=== PATIENT | male | born 1950 | race Caucasian/White ===

== ENCOUNTER → 2020-11-07 08:09 | Outpatient (CLI) | payer MEDICARE, SELFPAY | PROVIDERS: PCP Family Medicine; Visit Provider Nurse Practitioner | DX: Z20.822 Contact with and (suspected) exposure to COVID-19 (principal) | CPT/HCPCS: C9803; U0003; U0005 ==

== ENCOUNTER → 2020-12-26 12:50 | Outpatient (CLI) | payer MEDICARE, SELFPAY ==
--- NOTE | 2020-12-26 12:52 | US_ITS ---
APPROVED REPORT Exam Type: Lower Extremity Segmental Pressures Deburrer: Lucia Randolph RVT Indications Non-healing Ulcer: Right DECREASED PULSES BILATERAL, WOUND RT 5TH DIGIT Pressures/Indices Right Indices Left Indices Brachial 181.00 mmHg Brachial 179.00 mmHg Low Thigh 174.00 mmHg 0.96 Low Thigh 143.00 mmHg 0.79 Calf 189.00 mmHg 1.04 Calf 149.00 mmHg 0.82 Ankle(PT) 202.00 mmHg 1.12 Ankle(PT) 149.00 mmHg 0.82 Ankle(DP) 191.00 mmHg 1.06 Ankle(DP) 150.00 mmHg 0.83 Digit 126.00 mmHg 0.70 Digit 126.00 mmHg 0.70 Findings RT MARCELA:1.12 LT MARCELA:0.83 RT TBI:0.70 LT TBI:0.70 DAMPANED PULSES ON THE LEFT DAMPANED WAVEFORMS ON THE LEFT MILD ARTERIAL DISEASE LEFT LOWER EXTREMITY. Conclusion RT MARCELA:1.12 LT MARCELA:0.83 RT TBI:0.70 LT TBI:0.70 DAMPANED PULSES ON THE LEFT DAMPANED WAVEFORMS ON THE LEFT MILD ARTERIAL DISEASE LEFT LOWER EXTREMITY. Electronically signed by : Abrahan Kidd MD 12/26/2020 15:29:15
== END ==
PROVIDERS: PCP Family Medicine; Visit Provider Podiatrist
DX: R09.89 Other specified symptoms and signs involving the circulatory and respiratory systems (principal)
CPT/HCPCS: 93923

== ENCOUNTER → 2020-12-29 07:56 | Outpatient (CLI) | payer MEDICARE, SELFPAY | PROVIDERS: PCP Family Medicine; Visit Provider Nurse Practitioner | DX: Z20.822 Contact with and (suspected) exposure to COVID-19 (principal); U07.1 COVID-19 | CPT/HCPCS: C9803; U0003; U0005 ==

== ENCOUNTER → 2021-04-13 13:27 | Outpatient (CLI) | payer MEDICARE, SELFPAY | PROVIDERS: PCP Family Medicine; Visit Provider Nurse Practitioner | DX: U07.1 COVID-19 (principal) | CPT/HCPCS: C9803; U0003; U0005 ==

== ENCOUNTER → 2021-04-23 16:50 | Outpatient (CLI) | payer MEDICARE, SELFPAY ==
--- NOTE | 2021-04-23 17:00 | XR_ITS ---
PROCEDURE INFORMATION: Exam: XR Chest Exam date and time: 04/23/2021 5:00 PM Age: 70 years old Clinical indication: Condition or disease; Other: Covid positive TECHNIQUE: Imaging protocol: XR of the chest. Views: 1 view. COMPARISON: No relevant prior studies available. FINDINGS: Lungs: Right middle lobe infiltrate. Hyperexpanded lungs. Pleural spaces: Unremarkable. No pleural effusion. No pneumothorax. Heart/Mediastinum: Unremarkable. No cardiomegaly. Bones/joints: Unremarkable. IMPRESSION: Right middle lobe infiltrate.
[2021-04-23 17:26] LABS: Basophils # 0.1 K/mm3 (0-0.2); Basophils % 0.9 % (0.1-2.0); Eosinophils # 0.1 K/mm3 (0.0-0.4); Eosinophils % 0.6 % (0.1-12.0); Hematocrit 46.2 % (42.0-52.0); Hemoglobin 15.4 g/dL (14.1-18.0); Lymphocytes # 1.8 K/mm3 (0.7-4.5); Lymphocytes % 11.1 % (10-50); Mean Corpuscular HGB Conc 33.2 g/dL (31.8-35.4); Mean Corpuscular Hemoglobin 30.2 pg (27.0-31.2); Mean Corpuscular Volume 91.1 fl (80-94); Mean Platelet Volume 8.5 fl (7.4-10.4); Monocytes # 1.1 K/mm3 (0.1-1.0); Monocytes % 6.7 % (1.7-9.3); Neutrophils # 12.7 K/mm3 (1.8-7.8); Neutrophils % 80.6 % (37.0-80.0); Platelet Count 357 K/mm3 (142-424); Red Blood Count 5.08 M/mm3 (4.60-6.20); Red Cell Distribution Width 13.2 % (11.5-17.5); White Blood Count 15.8 K/mm3 (4.8-10.8)
[2021-04-23 17:36] LABS: MANUAL DIFFERENTIAL MANUAL DIFFERENTIAL (MANUAL DIFF)
[2021-04-23 18:27] LABS: Hypochromasia 1+; Lymphocytes % 11 % (10-50); Monocytes % 6 % (2-9); Neutrophils % 83 % (42-76); Platelet Estimate Normal; Total Cells Counted 100
== END ==
PROVIDERS: PCP Family Medicine; Visit Provider Physician Assistant
DX: U07.1 COVID-19 (principal)
CPT/HCPCS: 71045; 85007; 85025

== ENCOUNTER 2023-05-17 07:23 | Day surgery (SDC) | payer MEDICARE, SELFPAY ==
[2023-05-17] MEDS: CYCLOPENTOLATE 2% OPHTH SOLN 2ML BOTTLE OP ×3 (08:00→08:10)
[2023-05-17] MEDS: PHENYLEPHRINE 2.5% OPHTH SOLN 2ML 0.0500000000000000028 ML OP ×3 (08:00→08:10)
[2023-05-17] MEDS: TETRACAINE 0.5% OPTH SOL 15ML OP ×3 (08:00→08:10)
[2023-05-17 08:04] VITALS: BP 149/66; PULSE 64; RESP 18; TEMP 36.7; O2SAT 93; BMI 24.7
[2023-05-17] MEDS: SODIUM CHLORIDE 0.9% 10ML FLUSH SYRINGE 10 ML IV ×2 (08:11→08:49)
[2023-05-17 08:41] VITALS: BP 160/74; PULSE 63; RESP 20; O2SAT 96
[2023-05-17] MEDS: MIDAZOLAM 2MG/2ML VIAL 1 MG IV (08:41)
[2023-05-17 08:46] VITALS: BP 162/74; PULSE 58; RESP 20; O2SAT 97
[2023-05-17] MEDS: TIMOLOL 0.5% OPTH SOLN 5ML OP (08:49)
[2023-05-17] MEDS: LIDOCAINE 1% PF 2ML AMPULE 2 ML IJ (08:50)
[2023-05-17] MEDS: TOBRAMYCIN/DEX OPTH SUSP 2.5ML OP (08:50)
[2023-05-17 08:51] VITALS: BP 151/77; PULSE 62; RESP 20; O2SAT 98
[2023-05-17 08:52] VITALS: BP 173/84; PULSE 65; RESP 20; O2SAT 97
[2023-05-17 08:59] VITALS: BP 152/68; PULSE 64; RESP 17; TEMP 36.6; O2SAT 99
== END 2023-05-17 09:12 | disposition home or self-care (01) ==
PROVIDERS: PCP Family Medicine; Visit Provider Ophthalmology
PROC: (CPT 66984; principal; 2023-05-17 09:00)
DX: H25.811 Combined forms of age-related cataract, right eye (principal); H53.8 Other visual disturbances
CPT/HCPCS: 66984; V2632

== ENCOUNTER 2023-05-31 07:47 | Day surgery (SDC) | payer MEDICARE, SELFPAY ==
[2023-05-27 10:04] VITALS: BMI 25.4
[2023-05-31] VITALS (7 sets, daily range): BP systolic 123–197; BP diastolic 71–97; PULSE 56–70; RESP 18; TEMP 36.2–36.7; O2SAT 93–98
[2023-05-31] MEDS: CYCLOPENTOLATE 2% OPHTH SOLN 2ML BOTTLE OP ×3 (08:20→08:30)
[2023-05-31] MEDS: PHENYLEPHRINE 2.5% OPHTH SOLN 2ML 0.0500000000000000028 ML OP ×3 (08:20→08:30)
[2023-05-31] MEDS: TETRACAINE 0.5% OPTH SOL 15ML OP ×3 (08:20→08:30)
[2023-05-31] MEDS: SODIUM CHLORIDE 0.9% 10ML FLUSH SYRINGE 10 ML IV ×2 (08:34→10:00)
[2023-05-31] MEDS: MIDAZOLAM 2MG/2ML VIAL 1 MG IV (09:44)
[2023-05-31] MEDS: LIDOCAINE 1% PF 2ML AMPULE 2 ML IJ (09:59)
[2023-05-31] MEDS: TOBRAMYCIN/DEX OPTH SUSP 2.5ML OP (09:59)
[2023-05-31] MEDS: TIMOLOL 0.5% OPTH SOLN 5ML OP (09:59)
== END 2023-05-31 10:25 | disposition home or self-care (01) ==
LOC: OR 07:48
PROVIDERS: PCP Family Medicine; Visit Provider Ophthalmology
DX: H25.811 Combined forms of age-related cataract, right eye (principal); H53.8 Other visual disturbances; H02.831 Dermatochalasis of right upper eyelid
CPT/HCPCS: 66984; V2632

== ENCOUNTER 2024-08-21 09:48 | Outpatient (CLI) | payer MEDICARE, SELFPAY ==
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
--- OUTSIDE RECORDS SUMMARY | 2024-08-21 09:53 | XMS_ITS | Patient Health Record ---
Author Organization [facility] Address [address] [place] [id number] Care Team Providers Care Phone Representative Name Role Phone Randall Leung Primary Care Provider Allergies Allergen (clinical drug ingredient) Drug/Non Drug Allergy documented on EMR Reaction Allergy Type Onset Date Status escitalopram Lexapro diarrhea Drug Allergy Acti ve Penicillin Unknown Drug Allergy Active Results Component Value Reference Range Notes P-Comprehensive Metabolic Pa faith (CMP) Reviewed date:03/12/2024 05:23:00 PM Interpretation:Normal Performing Lab: Notes/Report: Test performed by [facility] [address] [place] [address] , [address], [place] [address] Elliot Hatfield MD, Fibrous Plasterer CLIA: [id number] Sodium 140 135-145 mmol/L Potassium 4.0 3.5-5.3 [...] Interpretation:Normal Performing Lab: Notes/Report: Test performed by [facility], [address] , [address], [place] [address] Elliot Hatfield MD, Fibrous Plasterer CLIA: [id number] PSA 1.38 <4.00 ng/mL Please note this is an ultrasensitive PSA assay with a lower limit of detection of 0.014 ng/mL. This test is performed by the Don ECLIA methodology. Values obtained with different assay methods or kits cannot be directly compared. Medications Medication SIG (Take, Route, Frequency, Duration) Notes Start Date End Date Status Stiolto Respimat 2.5-2.5 MCG/ACT 2 puffs Inhalation Once a day 05/11/2024 Active ProAir Digihaler 108 (90 Base) MCG/ACT inhale 2 puffs by mouth four times daily as needed inhaled every 6 hours prn; Duration: 90 days Active Effexor XR 75 MG 1 cap(s) orally once a day; Duration: 90 days Active KlonoPIN 0.5 MG 1 tab(s) orally 3 ti mes a day as needed 03/08/2024 Active tiZANidine HCl 4 MG 1 tablet as needed Orally Three times a day 09/16/2022 Not-Ricardo ing Breo Ellipta 100-25 MCG/ACT 1 puff Inhalation Once a day 11/09/2022 Not-Taking Immunizations Vaccine Route Administration Date Status Comme nts COVID 19 Moderna Unknown 05/27/2021 Administered COVID 19 Pfizer Unknown 04/13/2020 Administered COVID 19 Pfizer Unknown 05/07/2020 Administered COVID 19 Pfizer Unknown 11/16/2020 Administered DT, 7 YEARS OR OLDER Unknown 04/24/1996 Administered Fluzone High Dose (65yr and older) Unknown 10/24/2019 Administered Fluzone Quad (6months&older) Unknown 12/25/2016 Administered Fluzone Quad-Medicare (6months&older) Unknown 12/13/2017 Administered Fluzone Quad-Medicare (6months&older) Unknown 11/13/2020 Administered Fluzone Quad-Medicare (6months&older) Unknown 11/02/2021 Administered Hepatitis A (adult) Unknown 12/13/2017 Administered PNEUMOVAX 23 VACCINE IM Intramuscular 04/12/2019 Administe red Prevnar (PCV13) IM Intramuscular 04/13/2018 Administered xFlu shot- 6months-36 months of ckp-XAEA-OMZS-trivalent Unknown 04/08/2016 Administered xFlu shot- 6months-36 months of jdc-FAOG-GLTG-trivalent Unknown 12/25/2016 Administered xFlu shot-36 months and older IM Intramuscular 12/15/2006 Administered xFlu shot-36 months and older IM Intramuscular 11/05/2008 Administered xFluzone High Dose-private (65yr&older) Unknown 10/31/2023 Administered Social History Tobacco Use: Social History Observation Description Date Details (start date - stop date) Former Smoker NA - NA CURRENT TOBACCO USE: Question Answer Notes Are you a: former smoker Quit 01/2023 Problems Problem Type SNOMED Code ICD Code Onset Dates Problem Status W/U Status Risk Notes Problem Gastroesophageal reflux disease (491457916) GERD (gastroesophageal reflux disease) (K21.9) Active confirmed Problem COPD - Chronic obstructive pulmonary disease (50884862) COPD (chronic obstructive pulmonary disease) (J44.9) Active confirmed Problem Anxiety disorder (094176089) Anxiety disorder (F41.9) Active confirmed Problem Social anxiety disorder (64014879) Social anxiety disorder (F40.10) Active confirmed Problem History of malignant neoplasm of prostate (505656193) History of prostate cancer (Z85.46) Active confirmed Problem Depression (328168943) Depression (F32.9) Active confirmed Problem Sacroiliitis (45166091) Sacroiliitis (M46.1) Active confirmed Problem Current smoker (82185548) Current smoker (F17.200) Active confirmed Problem Localized, primary osteoarthritis of the pelvic region and thigh (245077474) Primary osteoarthritis of left hip (M16.12) Active confirmed Problem Personal history of smoking (Z87.891) Active confirmed Problem Sciatica (49486959) Left sciatic nerve pain (M54.32) Active confirmed Vital Signs Heart Rate 73 /min 03/08/2024 Blood pressure diastolic 74 mm Hg 03/08/2024 Height 71 in 03/08/2024 Blood pressure systolic 130 mm Hg 03/08/2024 Weight 181.8 lbs 03/08/2024 BMI 25.35 kg/m2 03/08/2024 Encounters Encounter Location Date Provider Diagnosis [facility] [address] [facility] [address] [place] [id number] 09/15/2023 R Sergio Leung Anxiety disorder F41 .9 ; COPD (chronic obstructive pulmonary disease) J44.9 ; Depression F32.9 ; Left sciatic nerve pain M54.32 and History of prostate cancer Z85.46 [facility] [address] [facility] [address] [place], [place] [id number] 03/08/2024 R Sergio Leung Adult general medica l examination Z00.00 ; Anxiety disorder F41.9 ; COPD (chronic obstructive pulmonary disease) J44.9 ; Depression F32.9 ; History of prostate cancer Z85.46 ; Personal history of smoking Z87.891 and BMI 25.0-25.9,adult Z68.25 [facility] [address] [facility] 36 [facility] [address] [place], [place] [id number] 03/12/2024 R Sergio Leung [facility] [address] [facility] 36 [facility] [address] [place], [place] [id number] 03/13/2024 R Sergio Leung Elevated PSA R97.20 [facility] [address] [facility] 36 [facility] [address] [place], [place] [id number] 05/11/2024 R Sergio Leung COPD (chronic obstructive pulmonary disease) J44.9 [facility] [address] [facility] 36 [facility] [address] [place], [place] [id number] 05/11/2024 R Sergio Leung [facility] [address] [facility] 36 [facility] [address] [place], [place] [id number] 07/02/2024 R Sergio Leung Assessments Encounter Date Diagnosis (ICD Code) Assessment Notes Treatment Notes Treatment Clinical Notes Section Notes 09/15/2023 COPD (chronic obstructive pulmonary disease) (ICD-10 - J44.9) 09/15/2023 Anxiety disorder (ICD-10 - F41.9) 03/08/2024 Anxiety disorder (ICD-10 - F41.9) 03/08/2024 Adult general medical examination (ICD-10 - Z00.00) Patient instructed to return to office Annually for Annual Wellness Visits to include annual screenings of Pain assessment, Functional Ability assessment, Cognitive Ability assessment, Fall Risk assessment, Depression screening and Bladder control screening. 03/13/2024 Elevated PSA (ICD-10 - R97.20) 05/11/2024 COPD (chronic obstructive pulmonary disease) (ICD-10 - J44.9) 03/08/2024 COPD (chronic obstructive pulmonary disease) (ICD-10 - J44.9) 09/15/2023 Depression (ICD-10 - F32.9) 09/15/2023 Left sciatic nerve pain (ICD-10 - M54.32) 03/08/2024 Depression (ICD-10 - F32.9) 03/08/2024 History of prostate cancer (ICD-10 - Z85.46) 09/15/2023 History of prostate cancer (ICD-10 - Z85.46) 03/08/2024 Personal history of smoking (ICD-10 - Z87.891) 03/08/2024 BMI 25.0-25.9,adult (ICD-10 - Z68.25) Plan Of Treatment Pending Test Test Name Order Date Prostate Specific Antigen (PSA) 09/17/19 CMP 09/16/2022 CBC 09/16/2022 H-Lipid Panel 01/08/2021 H-CMP 01/08/2021 H-PSA 01/08/2021 Next Appt Details Provider Name:Randall Lowe, 09/06/2024 10:30:00 AM, [address] [facility], [address], [place], [place], [id number], Insurance Providers Payer Name Payer Address Payer Phone Subscriber Number Group Number Insured Name Patient Relationship to Insured Coverage Start Date Coverage End Date [employer] (MEDICAR E) [address] [address] [place] [address] [id number] June, Self - patient is the insured Medical (General) History Medical History History ICD Code Esophageal reflux anxiety OA Prostate cancer - 05/2009 COPD Tobacco abuse Presbycusis Cologuard - positive 04/2018 -> declines further w/u Declines all health maintenance screenin g 09/2019; 08/2023; 02/2024 Surgical History Surgery Date(Month/Year) radical prostatectomy 08-20-09 Repair of urethral stricture 09/2009 Bilateral Cataract Surgery 2023 Hospitalization History Reason Date(Month/Year) broke left leg, 2 days in [facility]-hurt right foot 09/06
[2024-08-21] MEDS: ALBUTEROL 0.083% 2.5 MG/3 ML NEB IH (10:41)
--- NOTE | 2024-08-21 10:42 | PC.NURSE ---
Pre and Post Spirometry completed without incident. Albuterol 0.083% given via HHN, per written protocol, Pt tolerated tx well.
--- NOTE | 2024-08-21 11:00 | CT_ITS ---
FINAL REPORT TECHNIQUE: Thin section axial images were obtained from the lung apices to the upper abdomen by computed tomography. Reformatted images were obtained and reviewed. This study was performed with techniques to keep radiation doses al low as reasonably achievable (ALARA). Individualized dose reduction techniques using automated exposure control or adjustment of mA and/or kV according to the patient's size were employed. CLINICAL HISTORY: lung cancer screening, quit smoking 6 months ago, smoked 3 packs per day x 56 yrs, exposure to asbestos, diesel fumes, & coal smoke. prostate cancer. lung cancer history in cousins. exposed to second hand smoke. COMPARISON: None FINDINGS: CHEST CT LOW DOSE 74-year-old male, quit smoking 6 months ago, [id number] history. CTDI vol (mGy): 2.90 DLP (mGy-cm): 115.42 There is no axillary adenopathy. There is no mediastinal or hilar mass or adenopathy. The heart is normal in size. There is no pericardial or pleural effusion. There is mild emphysema and mild pulmonary scarring. Lung window images demonstrate no suspicious infiltrate or nodule. Limited images of the upper abdomen are unremarkable. IMPRESSION: Lung-RADS category 1. Recommend 12 month follow up low dose chest CT. Reviewed, Interpreted and Dictated by Tip Olea MD Transcribed by Lourdes Gibson Authenticated and [facility]
--- NOTE | 2024-08-21 11:12 | XR_ITS ---
FINAL REPORT TECHNIQUE: Chest PA & Lateral CLINICAL HISTORY: COPD, SOA COMPARISON: None FINDINGS: 2 views of the chest were performed. The heart size is normal. The mediastinum is within normal limits. There are large lung volumes and flattening of the hemidiaphragms consistent with changes of chronic obstructive pulmonary disease. There are no pleural effusions. There is no pneumothorax. The bony thorax appears intact. IMPRESSION: Changes of chronic obstructive pulmonary disease, with no acute cardiopulmonary process. Reviewed, Interpreted and Dictated by Tip Olea MD Transcribed by Lourdes Gibson Authenticated and [facility]
== END 2024-08-21 23:59 | disposition home or self-care (01) ==
LOC: RT 09:50
PROVIDERS: PCP Nurse Practitioner Family; Visit Provider Nurse Practitioner Family
DX: J44.9 Chronic obstructive pulmonary disease, unspecified (principal); Z87.891 Personal history of nicotine dependence; Z12.2 Encounter for screening for malignant neoplasm of respiratory organs
CPT/HCPCS: 71046; 71271; 94010

== ENCOUNTER 2024-12-05 16:21 | Outpatient (CLI) | payer MEDICARE, SELFPAY ==
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
--- OUTSIDE RECORDS SUMMARY | 2024-09-06 06:30 | XMS_ITS ---
Author Organization [facility] Address [address] [facility] [address] [place] [id number] Care Team Providers Care Label Drier Name Role Phone Randall Leung Primary Care Provider Allergies Allergen (clinical drug ingredient) Drug/Non Drug Allergy documented on EMR Reaction Allergy Type Onset Date Status escitalopram Lexapro diarrhea Drug Allergy Acti ve Penicillin Unknown Drug Allergy Active REASON FOR VISIT 6 month check, Needs labs, colon cancer screening, & low dose chest CT Social History Tobacco Use: Social History Observation Description Date Details (start date - stop date) Former Smoker NA - NA CURRENT TOBACCO USE: Question Answer Notes Are you a: former smoker Quit 01/2023 Encounters Encounter Location Date Provider Diagnosis [place] [address] [facility] [address] [place] [id number] 09/06/2024 Randall Leung Plan Of Treatment No Information Progress Notes * Wagner AMAYA TDOB:1950 ([age] yo M)Acc No.[id number]:09/06/2024 Progress Notes Patient: Wagner CHAVES Provider: Randall Leung M.D. :1950 A ge:74 Y S ex:Male Date:09/06/2024 Address:[address] [id number] Subjective: * Chief Complaints: * 1 . 6 month check. 2. Needs labs, colon cancer screening, & low dose chest CT. * HPI: H PI: 74 year old male presents with c/o Patient is here today for?Pt is here today for a 6 month check up. Pt sts he is doing well and has no concerns at this time. Pt is fasting. * ROS: D ERMATOLOGY: no R jose raul. n [...] b roke left leg, 2 days in [facility], [facility]-hurt right foot 09/06. * Family History: F ather: , TB, ASCVD, ETOH abuse. M other: , asthma, TB. 1 brother(s) , 2 sister(s) . 2 son(s) , 1 daughter(s) . . * Social History: C URRENT TOBACCO USE: No A re you a: f ormer smoker Quit 01/2023. C affeine: yes, frequency:. Past smoking status: yes, Quit 01/2023. Alcohol: no. * Allergies: P enicillin, Lexapro: diarrhea. Objective: * Vitals: Assessment: Plan: * Treatment: * Images: Billing Information: * Visit Code: * Procedure Codes: * Electronic signature of Randall Leung MD on 12/06/2024 at 11:14 AM EDT Sign off status: Pending * Provider: Randall Leung M.D. Date: 0 09/06/2024 Generated for Juan Francisco real/Anam/Rodriguez on: 1 11:14 AM EDT History and Physical Notes * HPI (History of Present Illness) Category Sub-Category Detail Notes Category Not es HPI Patient is here today for Pt is here today for a 6 month check up. Pt sts he is doing well and has no concerns at this time. Pt is fasting
[2024-12-05 16:58] LABS: Coronavirus 19, PCR Not Detected (NotDetected); Influenza A, PCR Not Detected (NotDetected); Influenza B, PCR Not Detected (NotDetected)
--- OUTSIDE RECORDS SUMMARY | 2024-12-06 11:14 | XMS_ITS | Patient Health Record ---
Author Organization [facility] Address [address] [place] [id number] Care Team Providers Care Treasury Agent Name Role Phone Randall Leung Primary Care Provider [phone] Allergies Allergen (clinical drug ingredient) Drug/Non Drug Allergy documented on EMR Reaction Allergy Type Onset Date Status escitalopram Lexapro diarrhea Drug Allergy Acti ve Penicillin Unknown Drug Allergy Active Results Component Value Reference Range Notes P-Comprehensive Metabolic Pa faith (CMP) Reviewed date:03/12/2024 05:23:00 PM Interpretation:Normal Performing Lab: Notes/Report: Test performed by [facility] [address] [place] [address] , [address], [place] [address] Elliot Hatfield MD, Welfare Investigator CLIA: [id number] Sodium 140 135-145 mmol/L Potassium 4.0 3.5-5.3 [...] Interpretation:Normal Performing Lab: Notes/Report: Test performed by [facility], [address] , [address], [place] [address] Elliot Hatfield MD, Welfare Investigator CLIA: [id number] PSA 1.38 <4.00 ng/mL Please note this [...] puffs Inhalation Once a day 05/11/2024 Active Effexor XR 75 MG 1 cap(s) orally once a day; Duration: 30 days Active ProAir Digihaler 108 (90 Base) MCG/ACT [...] 04/13/2018 Administered xFlu shot- 6months-36 months of coh-QGBU-YFXZ-trivalent Unknown 04/08/2016 Administered xFlu shot- 6months-36 months of ihl-IBAA-OEOI-trivalent Unknown 12/25/2016 Administered xFlu shot-36 months and [...] Status Risk Notes Problem Gastroesophageal reflux disease (922232543) GERD (gastroesophageal reflux disease) (K21.9) Active confirmed Problem COPD - Chronic obstructive pulmonary disease (64190674) COPD (chronic obstructive pulmonary disease) (J44.9) Active confirmed Problem Anxiety disorder (254441814) Anxiety disorder (F41.9) Active confirmed Problem Social anxiety disorder (45871912) Social anxiety disorder (F40.10) Active confirmed Problem History of malignant neoplasm of prostate (798290371) History of prostate cancer (Z85.46) Active confirmed Problem Depression (032396057) Depression (F32.9) Active confirmed Problem Sacroiliitis (29862897) Sacroiliitis (M46.1) Active confirmed Problem Current smoker (48592608) Current smoker (F17.200) Active confirmed Problem Localized, primary osteoarthritis of the pelvic region and thigh (405052407) Primary osteoarthritis of left hip (M16.12) Active confirmed Problem Ex-smoker (finding) (3669335) Personal history of smoking (Z87.891) Active confirmed Problem Sciatica (46253289) Left sciatic nerve pain (M54.32) Active confirmed Vital Signs Heart Rate 73 /min 03/08/2024 Blood pressure diastolic 74 mm Hg 03/08/2024 Height 71 in 03/08/2024 Blood pressure systolic 130 mm Hg 03/08/2024 Weight 181.8 lbs 03/08/2024 BMI 25.35 kg/m2 03/08/2024 Encounters Encounter Location Date Provider Diagnosis [facility] [address] [place], [place] [id number] 03/08/2024 R Sergio Leung Adult general medica l examination Z00.00 ; Anxiety disorder F41.9 ; COPD (chronic obstructive pulmonary disease) J44.9 ; Depression F32.9 ; History of prostate cancer Z85.46 ; Personal history of smoking Z87.891 and BMI 25.0-25.9,adult Z68.25 [facility] [address] [place], [place] [id number] 03/12/2024 R Sergio Madhu [facility] [address] [place], [place] [id number] 03/13/2024 R Sergio Spencert Elevated PSA R97.20 [facility] [address] [place], [place] [id number] 05/11/2024 R Sergio Spencert COPD (chronic obstructive pulmonary disease) J44.9 [facility] [address] [place], [place] [id number] 05/11/2024 R Sergio Madhu [facility] [address] [place], [place] [id number] 07/02/2024 R Sergio Madhu [facility] [address] [place], [place] [id number] 09/04/2024 R Sergio Spencert Anxiety disorder F41 .9 Assessments Encounter Date Diagnosis (ICD Code) Assessment Notes Treatment Notes Treatment Clinical Notes Section Notes 03/08/2024 Anxiety disorder (ICD-10 - F41.9) 03/08/2024 Adult general medical examination (ICD-10 - Z00.00) Patient instructed to return to office Annually for Annual Wellness Visits to include annual screenings of Pain assessment, Functional Ability assessment, Cognitive Ability assessment, Fall Risk assessment, Depression screening and Bladder control screening. 09/04/2024 Anxiety disorder (ICD-10 - F41.9) 05/11/2024 COPD (chronic obstructive pulmonary disease) (ICD-10 - J44.9) 03/13/2024 Elevated PSA (ICD-10 - R97.20) 03/08/2024 COPD (chronic obstructive pulmonary disease) (ICD-10 - J44.9) 03/08/2024 Depression (ICD-10 - F32.9) 03/08/2024 History of prostate cancer (ICD-10 - Z85.46) 03/08/2024 Personal history of smoking (ICD-10 - Z87.891) 03/08/2024 BMI 25.0-25.9,adult (ICD-10 - Z68.25) Plan Of Treatment Pending Test Test Name Order Date Prostate Specific Antigen (PSA) 09/17/19 CMP 09/16/2022 CBC 09/16/2022 H-Lipid Panel 01/08/2021 H-CMP 01/08/2021 H-PSA 01/08/2021 Insurance Providers Payer Name Payer Address Payer Phone Subscriber Number Group Number Insured Name Patient Relationship to Insured Coverage Start Date Coverage End Date [employer] (MEDICAR E) [address] [address] [place] [address] [id number] June, Wagner Self - patient is the insured Medical (General) History Medical History History ICD Code Esophageal reflux anxiety OA Prostate cancer - 05/2009 COPD Tobacco abuse Presbycusis Cologuard - positive 04/2018 -> declines further w/u Declines all health maintenance screenin g 09/2019; 08/2023; 02/2024 Surgical History Surgery Date(Month/Year) radical prostatectomy 08-20-09 Repair of urethral stricture 09/2009 Bilateral Cataract Surgery 2023 Hospitalization History Reason Date(Month/Year) [facility]-hurt right foot 09/06 broke left leg, 2 days in [facility] 1982
== END 2024-12-05 23:59 ==
LOC: LAB.DROPOF 12-06 11:10
PROVIDERS: PCP Nurse Practitioner Family; Visit Provider Nurse Practitioner Family
DX: R68.89 Other general symptoms and signs (principal)
CPT/HCPCS: 87631